=== PATIENT | female | born 1980 ===

== ENCOUNTER 2017-06-05 16:43 | Emergency (ER) | payer OTHER ==
[2017-06-05 16:50] VITALS: RESP 18; O2SAT 100
[2017-06-05 17:39] LABS: RBC URINE 26 /hpf (0-3); URINE BACTERIA FEW (<OCC); URINE BILIRUBIN NEGATIVE (NEGATIVE); URINE BLOOD 2+ (NEGATIVE); URINE COLOR Yellow (YELLOW); URINE GLUCOSE (UA) NORMAL (Normal); URINE KETONE NEGATIVE (NEGATIVE); URINE LEUKOCYTE ESTERASE 2+ Leu/uL (Negative); URINE PROTEIN NEGATIVE (NEGATIVE); URINE UROBILINOGEN NORMAL mg/dL (0.2-1.0); WBC URINE 60 /hpf (0-5)
--- NOTE | 2017-06-05 17:54 | C.PDOC ---
History Of Present Illness 36 y/o female presents to ED with complaints of unable to completely empty bladder and urinary frequency for 1 day. Patient denies back pain, nausea, vomiting, hematuria, dysuria, vaginal discharge, vaginal bleeding or any other complaints at this time. Chief Complaint (Nursing): Female Genitourinary History Per: Patient History/Exam Limitations: no limitations Onset/Duration Of Symptoms: Days Current Symptoms Are (Timing): Still Present Associated Symptoms: Urinary Symptoms. denies: Nausea, Vomiting, Back Pain Past Medical History Reviewed: Historical Data, Nursing Documentation, Vital Signs Vital Signs: Last Vital Signs Temp 99.1 F 06/05/17 18:15 Pulse 68 06/05/17 18:15 Resp 18 06/05/17 18:15 BP 112/73 06/05/17 18:15 Pulse Ox 100 06/05/17 18:15 - Medical History PMH: No Chronic Diseases Surgical History: Cholecystectomy Family History: States: No Known Family Hx - Social History Hx Alcohol Use: No Hx Substance Use: No - Immunization History Hx Tetanus Toxoid Vaccination: No Hx Influenza Vaccination: No Hx Pneumococcal Vaccination: No Review Of Systems Constitutional: Negative for: Fever, Chills Gastrointestinal: Negative for: Nausea, Vomiting Genitourinary: Positive for: Frequency. Negative for: Dysuria, Hematuria, Vaginal Discharge, Vaginal Bleeding Musculoskeletal: Negative for: Back Pain Skin: Negative for: Rash Physical Exam - Physical Exam Appears: Non-toxic, No Acute Distress Skin: Normal Color, Warm, Dry, No Rash Head: Atraumatic, Normacephalic Eye(s): bilateral: Normal Inspection Oral Mucosa: Moist Neck: Supple Cardiovascular: Rhythm Regular Respiratory: Normal Breath Sounds, No Rales, No Rhonchi, No Wheezing Gastrointestinal/Abdominal: Soft, No Tenderness, No Guarding, No Rebound Extremity: Normal ROM, Capillary Refill (<2 seconds) Neurological/Psych: Oriented x3 ED Course And Treatment O2 Sat by Pulse Oximetry: 100 (RA) Pulse Ox Interpretation: Normal Disposition - Disposition Referrals: Sal Basurto, [Non-Staff] - Disposition: HOME/ ROUTINE Disposition Time: 17:40 Condition: GOOD Additional Instructions: Thank you for letting us take care of you today. The emergency medical care you received today was directed at your acute symptoms. If you were prescribed any medication, please fill it and take as directed. It may take several days for your symptoms to resolve. Return to the Emergency Department if your symptoms worsen, do not improve, or if you have any other problems. Please contact your doctor or call one of the physicians/clinics you have been referred to that are listed on the Patient Visit Information form that is included in your discharge packet. Bring any paperwork you were given at discharge with you along with any medications you are taking to your follow up visit. Our treatment cannot replace ongoing medical care by a primary care provider (PCP) outside of the emergency department. Thank you for allowing the [facility] team to be part of your care today. Follow up with your doctor in 3-5 days for re-evaluation and management. Ines por dejarnos atenderlo hoy. La atencin mdica de emergencia que recibi hoy estaba dirigida a carito sntomas agudos. Si le prescribieron algn medicamento, llnelo y tome segn las indicaciones. Carito sntomas pueden tardar varios gonzalez en resolverse. Regrese al Departamento de Emergencia si carito s ntomas empeoran, no mejoran o si tiene algn otro problema. Comunquese con cruz mdico o llame a hima de los mdicos / clnicas a los que stark sido referido que figura en el formulario de Informacin de visita del paciente que se incluye en cruz paquete de lore. Traiga todos los documentos que recibi al momento del lore junto con los medicamentos que est tomando en cruz visita de seguimiento. Nuestro tratamiento no puede reemplazar la atencin mdica en curso por parte de un proveedor de atencin primaria (PCP) fuera del departamento de emergencias. Ines por permitir que el equipo de [facility] sea parte de cruz cuidado hoy. Ariadne un seguimiento con cruz mdico en 3-5 gonzalez para radha nueva evaluacin y administracin. Prescriptions: Ibuprofen [Motrin] 600 mg PO Q6 PRN #20 tab PRN Reason: Pain, Moderate (4-7) Nitrofurantoin Macrocrystals [Macrobid] 100 mg PO BID #10 cap Instructions: Urinary Tract Infection in Women (ED) Forms: Gen Discharge Inst Rwandan Print Language: KAZAKH - Clinical Impression Clinical Impression: UTI (urinary tract infection) - Scribe Statement The provider has reviewed the documentation as recorded by the Brunoibcarmelo Ho All medical record entries made by the Angelita were at my direction and personally dictated by me. I have reviewed the chart and agree that the record accurately reflects my personal performance of the history, physical exam, medical decision making, and the department course for this patient. I have also personally directed, reviewed, and agree with the discharge instructions and disposition.
[2017-06-05 18:17] VITALS: BP 112/73; PULSE 68; TEMP 99.1
== END 2017-06-05 18:16 | disposition home or self-care (01) ==
LOC: C.ER 16:43
DX: N39.0 Urinary tract infection, site not specified (principal)

== ENCOUNTER 2018-05-07 08:18 | Emergency (ER) | payer OTHER ==
[2018-05-07 08:38] VITALS: BP 109/72; RESP 18
[2018-05-07] MEDS ORDERED: Iohexol 240 (50 ml) PO STA (09:00)
--- NOTE | 2018-05-07 09:03 | C.PDOC ---
History Of Present Illness 37 y/o female presents to the ER complaining of bilateral upper quadrant abdominal pain which has been present for the past 20 days. Patient states that she had diarrhea. Denies having fever, chills, nausea,vomiting, dysuria and hem aturia.Of note, patient is poor historian. Time Seen by Provider: 05/07/18 08:44 Chief Complaint (Nursing): Abdominal Pain History Per: Patient History/Exam Limitations: other (poor historian) Onset/Duration Of Symptoms: Days Current Symptoms Are (Timing): Still Present Severity: Moderate Past Medical History Reviewed: Historical Data, Nursing Documentation, Vital Signs Vital Signs: Last Vital Signs Temp 98.4 F 05/07/18 08:35 Pulse 76 05/07/18 08:35 Resp 18 05/07/18 08:35 BP 109/72 05/07/18 08:35 Pulse Ox 100 05/07/18 08:35 - Medical History PMH: No Chronic Diseases Surgical History: Cholecystectomy Family History: States: No Known Family Hx - Social History Hx Alcohol Use: No Hx Substance Use: No - Immunization History Hx Tetanus Toxoid Vaccination: No Hx Influenza Vaccination: No Hx Pneumococcal Vaccination: No Review Of Systems Except As Marked, All Systems Reviewed And Found Negative. Constitutional: Negative for: Fever, Chills Gastrointestinal: Positive for: Abdominal Pain, Diarrhea. Negative for: Nausea, Vomiting Genitourinary: Negative for: Dysuria, Hematuria Physical Exam - Physical Exam Appears: Non-toxic, No Acute Distress Skin: Normal Color, Warm, Dry Head: Atraumatic, Normacephalic Eye(s): bilateral: Normal Inspection Cardiovascular: Rhythm Regular Respiratory: Other (NARD) Gastrointestinal/Abdominal: Soft, Tenderness (mild epigastric and LUQ tenderness), No Guarding, No Rebound Neurological/Psych: Oriented x3, Normal Speech ED Course And Treatment - Laboratory Results Result Diagrams: 05/07/18 09:17 05/07/18 09:17 O2 Sat by Pulse Oximetry: 100 (RA) Pulse Ox Interpretation: Normal Reevaluation Time: 13:28 Reassessment Condition: Unchanged Medical Decision Making Medical Decision Making: Plan: --Labs --UA --US-Abd --CT-Abd & Pelv. --Morphine IV --Pepcid IV Disposition Counseled Patient/Family Regarding: Studies Performed, Diagnosis, Need For Followup, Rx Given - Disposition Referrals: [facility] [Outside] [facility] [Outside] Disposition: HOME/ ROUTINE Disposition Time: 13:28 Condition: IMPROVED Prescriptions: Atropine/Diphenoxylate [Lonox 0.025 MG-2.5 MG] 1 tab PO TID #12 tab Instructions: Diarrhea and Traveler's Diarrhea, Adult (DC) Forms: [facility] [employer] (Turkish), Work Excuse Print Language: ROMANSH - Clinical Impression Clinical Impression: Abdominal pain, Diarrhea - Scribe Statement The provider has reviewed the documentation as recorded by the Angelita Lozoya Provider Attestation: All medical record entries made by the Angelita were at my direction and personally dictated by me. I have reviewed the chart and agree that the record accurately reflects my personal performance of the history, physical exam, medical decision making, and the department course for this patient. I have also personally directed, reviewed, and agree with the discharge instructions and disposition.
[2018-05-07 09:22] LABS: BASO # 0.1 K/uL (0.0-0.2); BASO % 0.7 % (0.0-2.0); EOS # 0.2 K/uL (0.0-0.7); EOS % 3.1 % (0.0-4.0); HEMOGLOBIN 13.2 g/dL (11.0-16.0); LYMPH # 2.5 K/uL (1.0-4.3); MEAN CELL VOLUME 91.1 fL (81.0-99.0); MEAN CORPUSCULAR HEMOGLOBIN 31.5 pg (27.0-31.0); MEAN CORPUSCULAR HGB CONC 34.6 g/dL (33.0-37.0); MEAN PLATELET VOLUME 9.2 fL (7.2-11.7); MONO # 0.3 K/uL (0.0-0.8); MONO % 4.2 % (0.0-10.0); NEUT # 4.1 K/uL (1.8-7.0); RBC 4.19 Mil/uL (3.80-5.20); RED CELL DISTRIBUTION WIDTH 12.9 % (11.5-14.5); WHITE BLOOD COUNT 7.1 K/uL (4.8-10.8)
[2018-05-07] MEDS ORDERED: Iohexol 240 (50 ml) ONE (09:23)
[2018-05-07 09:27] LABS: SQUAMOUS EPITHIAL 11 /hpf (0-5); URINE BILIRUBIN NEGATIVE (NEGATIVE); URINE BLOOD 1+ (NEGATIVE); URINE CLARITY Hazy (Clear); URINE COLOR Yellow (YELLOW); URINE GLUCOSE (UA) NORMAL (Normal); URINE LEUKOCYTE ESTERASE 1+ Leu/uL (Negative); URINE PROTEIN NEGATIVE (NEGATIVE); URINE UROBILINOGEN NORMAL mg/dL (0.2-1.0)
[2018-05-07 09:36] LABS: ALB/GLOB RATIO 1.3 (1.0-2.1); ALBUMIN 4.4 g/dL (3.5-5.0); ALT/SGPT 22 U/L (9-52); AST/SGOT 21 U/L (14-36); BLOOD UREA NITROGEN 11 mg/dL (7-17); CALCIUM 9.3 mg/dl (8.6-10.4); GFR NON-AFRICAN AMERICAN > 60; LIPASE 82 U/L (23-300)
--- NOTE | 2018-05-07 09:59 | US ---
Date of service: 05/07/2018 HISTORY: Abdominal pain COMPARISON: None. TECHNIQUE: Grayscale imaging was performed. FINDINGS: LIVER: Measures 12.9 cm in length. Normal echogenicity of the liver parenchyma. No mass. No intrahepatic bile duct dilatation. GALLBLADDER: Surgically absent. COMMON BILE DUCT: Measures 5.2 mm. No stones. No dilatation. PANCREAS: Unremarkable as visualized. No mass. No ductal dilatation. RIGHT KIDNEY: Measures 9.8 cm in length. Normal echogenicity. No calculus, mass, or hydronephrosis. AORTA: No aneurysmal dilatation. IVC: Unremarkable. OTHER FINDINGS: None . IMPRESSION: No cholelithiasis or biliary dilatation.
[2018-05-07] MEDS ORDERED: Iodixanol 320 MG/ML 100 ML BOTTLE IV ONE (11:18)
[2018-05-07 12:43] VITALS: PULSE 65; TEMP 99.6
[2018-05-07 13:38] VITALS: O2SAT 100
--- NOTE | 2018-05-07 14:06 | CT ---
Date of service: 05/07/2018 PROCEDURE: CT Abdomen and Pelvis with contrast HISTORY: Abdominal pain. COMPARISON: Correlation made with concurrent abdominal ultrasound the TECHNIQUE: Contiguous helical/transaxial sections of the abdomen pelvis performed following oral and intravenous injection of approximately 100 cc Visipaque 320 contrast material. Additional 2D sagittal and coronal reformats generated. Radiation dose: Total exam DLP = 409.62 mGy-cm. This CT exam was performed using one or more of the following dose reduction techniques: Automated exposure control, adjustment of the mA and/or kV according to patient size, and/or use of iterative reconstruction technique. FINDINGS: LOWER THORAX: Lung bases are clear. No focal consolidation. Heart size is within range of normal. No significant pericardial effusion. Tiny hiatal hernia. Liver exhibits normal size. LIVER: Liver exhibits relatively normal size. No gross hepatic masses or collections.. Mild fatty hepatic infiltration felt be present. Portal and splenic veins are opacified. GALLBLADDER AND BILE DUCTS: Cholecystectomy. PANCREAS: Unremarkable. No gross lesion or ductal dilatation. SPLEEN: Spleen exhibits normal size and attenuation. ADRENALS: Unremarkable. No mass. KIDNEYS AND URETERS: Kidneys demonstrate relatively symmetric nephrograms. No evidence of nephrolithiasis hydronephrosis. There are no renal masses or collections. VASCULATURE: Unremarkable. No aortic aneurysm. No aortic atherosclerotic calcification or mural plaque present. BOWEL: Aeration of the bowel is somewhat limited due to incomplete opacification. The stomach is distended with contrast material and air. Visualized loops of small bowel exhibit relatively normal contour caliber. No evidence of acute mechanical small bowel obstruction with oral contrast material extending into the colon to the level of the distal sigmoid and rectum. APPENDIX: Normal appendix. PERITONEUM: Unremarkable. No free fluid. No free air. Small fat containing umbilical hernia. LYMPH NODES: There are multiple small to medium-sized mesenteric lymph nodes including prominent nodes in the right lower quadrant of the abdomen; rule out mesenteric adenitis. BLADDER: The urinary bladder is physiologically distended. No evidence of intraluminal urinary bladder calculi. REPRODUCTIVE: Unremarkable. BONES: Minor multilevel degenerative spondylosis of the lower thoracic and lumbar spine. No acute compression fractures no retropulsed fragments. No suspicious lytic or blastic lesions. OTHER FINDINGS: None. IMPRESSION: No evidence of acute appendicitis. There are scattered small to medium-sized mesenteric lymph nodes including lymph nodes in the right lower quadrant of the abdomen; rule out mesenteric adenitis. Cholecystectomy. Mild fatty hepatic infiltration. No evidence of nephrolithiasis or hydronephrosis.
== END 2018-05-07 13:50 | disposition home or self-care (01) ==
LOC: C.ER 08:18
DX: R10.9 Unspecified abdominal pain (principal); R19.7 Diarrhea, unspecified
CPT/HCPCS: 74177; 76705; 80053; 81001; 83690; 85025; 96374; 96375; 99284; J2270; Q9966; Q9967

== ENCOUNTER 2018-09-07 08:38 | Outpatient (CLI) | payer OTHER | END 2018-09-07 08:39 | disposition home or self-care (01) | LOC: C.LAB 08:38 | DX: R31.29 Other microscopic hematuria (principal); R76.8 Other specified abnormal immunological findings in serum; R73.09 Other abnormal glucose ==

== ENCOUNTER 2018-11-17 19:48 | Emergency (ER) | payer OTHER ==
[2018-11-17 19:55] VITALS: BP 107/71; PULSE 66; RESP 18; TEMP 98.4; O2SAT 100
--- NOTE | 2018-11-17 20:18 | C.PDOC ---
History Of Present Illness 38 y/o female pt presents to the ER c/o hive for x3 days intermittently on different areas of her body. Pt denies any allergens, past history of allergies, SOB, lip swelling, chest pain, tongue swelling and any other associated sx at this time. Time Seen by Provider: 11/17/18 20:02 Chief Complaint (Nursing): Allergic Reaction History Per: Patient History/Exam Limitations: no limitations Onset/Duration Of Symptoms: Days (x3) Current Symptoms Are (Timing): Still Present Possible Cause: Unknown Associated Symptoms: Skin Rash Past Medical History Reviewed: Historical Data, Nursing Documentation, Vital Signs Vital Signs: Last Vital Signs Temp 98.4 F 11/17/18 19:52 Pulse 66 11/17/18 19:52 Resp 18 11/17/18 19:52 BP 107/71 11/17/18 19:52 Pulse Ox 100 11/17/18 19:52 Primary Care Provider: Non [facility] Provider, - Medical History PMH: Gastritis Surgical History: Cholecystectomy Family History: States: No Known Family Hx - Social History Hx Alcohol Use: No Hx Substance Use: No - Immunization History Hx Tetanus Toxoid Vaccination: No Hx Influenza Vaccination: No Hx Pneumococcal Vaccination: No Review Of Systems Except As Marked, All Systems Reviewed And Found Negative. Constitutional: Negative for: Fever, Other (allergens, past history of allergies, lip swelling, tongue swelling ) Cardiovascular: Negative for: Chest Pain Respiratory: Negative for: Shortness of Breath Skin: Positive for: Other (hives) Physical Exam - Physical Exam Appears: Non-toxic, No Acute Distress Skin: Warm, Dry, Rash (hives to the thighs and b/l lower legs), No Other (swelling or erythema ) Eye(s): bilateral: Normal Inspection Oral Mucosa: Moist Tongue: Normal Appearing, No Swelling Lips: Normal Appearing, No Swelling Throat: Normal, No Erythema Neck: Normal ROM, Trachea Midline, Supple Cardiovascular: Rhythm Regular Respiratory: Normal Breath Sounds Neurological/Psych: Oriented x3, Normal Speech, Normal Cognition ED Course And Treatment O2 Sat by Pulse Oximetry: 100 (RA) Pulse Ox Interpretation: Normal Medical Decision Making Medical Decision Making: Plans: -- prednisone Disposition Counseled Patient/Family Regarding: Diagnosis, Need For Followup, Rx Given - Disposition Referrals: [facility] [Outside] Disposition: HOME/ ROUTINE Disposition Time: 20:12 Condition: STABLE Additional Instructions: Please follow up with PMD Take medications as directed Return to ER if worse Prescriptions: Cetirizine HCl [Zyrtec] 10 mg PO DAILY #14 capsule DiphenhydrAMINE [Benadryl] 50 mg PO HS #10 cap predniSONE [Prednisone] 40 mg PO DAILY #6 tab Instructions: [place] (DC) Forms: [employer] (Nauruan) Print Language: COSTA RICAN - Clinical Impression Clinical Impression: Allergic urticaria - PA / ASSOCIATE PROFESSOR OF KINESIOLOGY / Resident Statement / has reviewed & agrees with the documentation as recorded. - Scribe Statement The provider has reviewed the documentation as recorded by the Angelita Hudson Do All medical record entries made by the Angelita were at my direction and personally dictated by me. I have reviewed the chart and agree that the record accurately reflects my personal performance of the history, physical exam, medical decision making, and the department course for this patient. I have also personally directed, reviewed, and agree with the discharge instructions and disposition.
== END 2018-11-17 20:42 | disposition home or self-care (01) ==
LOC: C.ER 19:48
DX: L50.0 Allergic urticaria (principal)